=== PATIENT | male | born 1990 | race American Indian/Alaskan Native ===

== ENCOUNTER 2018-07-21 15:47 | Emergency (ER) | payer OTHER ==
--- NOTE | 2018-07-21 16:02 | Emergency Department Report ---
Blank Doc - Documentation Documentation: This is a 28-year-old male that presents with elevated platelet count. Patient was brought by nursing home for elevated platelet. Patient is asymptotic and denies any complaints. This initial assessment diagnostic orders/clinical plan/treatment(s) is/are subject to change based on patient's health status, clinical progression and re- assessment by fellow clinical providers in the ED. Further treatment and workup at subsequent clinical providers discretion. Patient/guardians urged not to elope from ED s their condition may be serious if not clinically assessed and managed. Initial orders include: 1-Patient sent to [facility] for further evaluation and treatment
[2018-07-21 16:45] LABS: Mean Corpuscular HGB Conc 30 % (32-34)
[2018-07-21 16:48] LABS: Hematocrit 33.8 % (35.5-45.6); Hemoglobin 10.1 gm/dl (11.8-15.2); Mean Corpuscular Volume 59 fl (84-94); Red Cell Distribution Width 38.8 % (13.2-15.2)
[2018-07-21 16:52] LABS: Alanine Aminotransferase 24 units/L (7-56); Albumin 3.6 g/dL (3.9-5); BUN/Creatinine Ratio 13; Blood Urea Nitrogen 12 mg/dL (9-20); Calcium 8.4 mg/dL (8.4-10.2); Hemolysis Index 8
[2018-07-21 17:58] LABS: Anisocytosis 1+; Band Neutrophils # (Manual) 0.1 K/mm3; Total Cells Counted 100
[2018-07-21 17:59] LABS: Hypochromasia 1+; Platelet Estimate Consistent w Auto; Tear Drop Cells Few
[2018-07-21 18:00] LABS: Platelet Count 349 K/mm3 (140-440)
[2018-07-21 18:11] VITALS: BP 117/61
--- NOTE | 2018-07-21 18:47 | Emergency Department Report ---
ED General Adult HPI - General Chief complaint: Recheck/Abnormal Lab/Rx Stated complaint: DIABETES Time Seen by Provider: 07/21/18 15:58 Source: patient Mode of arrival: Ambulatory Limitations: No Limitations - History of Present Illness Initial comments: 28-year-old male with a history of diabetes is brought in from senior living after having an elevated platelet count. Patient denies any chest pain or shortness of breath. Patient denies abdominal pain or vomiting. Patient denies any bleeding in the mouth region or hematemesis. Patient states he has no prior history of a abnormal platelet count. Patient does acknowledge history of anemia. Severity scale (0 -10): 0 - Related Data Allergies Allergy/AdvReac Type Severity Reaction Status Date / Time No Known Allergies Allergy Unverified 07/21/18 16:01 ED Review of Systems ROS: Stated complaint: DIABETES Other details as noted in HPI Constitutional: denies: chills, fever Eyes: denies: eye pain, eye discharge, vision change ENT: denies: ear pain, throat pain Respiratory: denies: cough, shortness of breath, wheezing Cardiovascular: denies: chest pain, palpitations Endocrine: no symptoms reported Gastrointestinal: denies: abdominal pain, nausea, diarrhea Genitourinary: denies: urgency, dysuria Musculoskeletal: denies: back pain, joint swelling, arthralgia Skin: denies: rash, lesions Neurological: denies: headache, weakness, paresthesias Psychiatric: denies: anxiety, depression Hematological/Lymphatic: denies: easy bleeding, easy bruising ED Past Medical Hx - Past Medical History Previous Medical History?: Yes Hx Diabetes: Yes - Surgical History Past Surgical History?: No - Social History Smoking Status: Former Smoker Substance Use Type: None ED Physical Exam - General Limitations: No Limitations General appearance: alert, in no apparent distress - Head Head exam: Present: atraumatic, normocephalic - Eye Eye exam: Present: normal appearance - ENT ENT exam: Present: mucous membranes dry - Neck Neck exam: Present: normal inspection - Respiratory Respiratory exam: Present: normal lung sounds bilaterally. Absent: respiratory distress - Cardiovascular Cardiovascular Exam: Present: regular rate, normal rhythm. Absent: systolic murmur, diastolic murmur, rubs, gallop - GI/Abdominal GI/Abdominal exam: Present: soft, normal bowel sounds - Rectal Rectal exam: Present: deferred - Extremities Exam Extremities exam: Present: normal inspection - Back Exam Back exam: Present: normal inspection - Neurological Exam Neurological exam: Present: alert, oriented X3 - Psychiatric Psychiatric exam: Present: normal affect, normal mood - Skin Skin exam: Present: warm, dry, intact, normal color. Absent: rash ED Course Vital Signs 07/21/18 07/21/18 07/21/18 15:53 16:00 17:53 Temperature 97.8 F 97.8 F 99.3 F Pulse Rate 69 72 Respiratory 18 18 Rate Blood Pressure 118/67 117/61 [Left] O2 Sat by Pulse 99 100 Oximetry ED Medical Decision Making - Lab Data Result diagrams: 07/21/18 16:08 07/21/18 16:08 - Medical Decision Making Patient is asymptomatic and is laying comfortably in the bed. Patient has a normal platelet count and blood glucose is 110. Patient be discharged to return to senior living. - Differential Diagnosis electrode abnormality; anemia; thrombocytosis; Critical care attestation.: If time is entered above; I have spent that time in minutes in the direct care of this critically ill patient, excluding procedure time. ED Disposition Clinical Impression: Diabetes mellitus Disposition: DC-01 TO HOME OR SELFCARE Is pt being admited?: No Condition: Stable Instructions: Diabetes Mellitus Type 2 in Adults (ED) Referrals: VIRGILIO ESQUIVEL MD [Staff Physician] - 3-5 Days Time of Disposition: 18:51 Print Language: AZERI
== END 2018-07-21 19:20 | disposition home or self-care (01) ==
LOC: ED 15:47
DX: R79.9 Abnormal finding of blood chemistry, unspecified (principal); E11.9 Type 2 diabetes mellitus without complications
CPT/HCPCS: 36415; 80053; 85007; 85025

== ENCOUNTER 2018-12-24 08:50 | Outpatient (CLI) | payer OTHER ==
--- NOTE | 2018-12-24 12:11 | Ultrasound Report ---
BILATERAL DIGITAL DIAGNOSTIC MAMMOGRAM WITH CAD -- 12/24/2018 BILATERAL COMPLETE BREAST ULTRASOUND INDICATION: Left palpable abnormality for many years, long history of bilateral nipple discharge sinc e childhood TECHNIQUE: Digital bilateral mammographic imaging was performed. Spot compression views were obtaine d. Complete ultrasound of all four (4) quadrants was performed. This examination was interpreted with the benefit of Computer-Aided Detection (CAD) analysis. COMPARISON: None FINDINGS: Density: The breasts are almost entirely fatty. There is no evidence of dominant mass, suspicious calcifications or architectural distortion in eithe r breast. Slight right and mild left gynecomastia are seen. Ultrasound Findings: Complete sonographic evlauation of all 4 quadrants and retroareolar region was p erformed. No abnormalities are seen in the right breast. In the left breast only mild gynecomastia is noted without discrete mass. IMPRESSION: Mild left gynecomastia is seen with slight right gynecomastia. No suspicious lesions are noted. Clini miles correlation is suggested to patient complaint. BI-RADS Category 2: Benign. A "normal" or negative report should not discourage follow up or biopsy of a clinically significant f inding. A written summary of these findings will be mailed to the patient. The patient will be entered into a mammography reporting system which will generate a reminder letter for the patient's next appointmen t at the appropriate interval. According to the [employer], yearly mammograms are recommended starting at age 40 and continuing as long as a woman is in good health. Breast MRI is recommended for women with an jocy roximately 20-25% or greater lifetime risk of breast cancer, including women with a strong family his tory of breast or ovarian cancer and women who have been treated for Hodgkin's disease. Signer Name: Patel Montgomery MD Signed: 12/24/2018 12:07 PM Workstation Name: [id number]
== END 2018-12-24 08:51 | disposition home or self-care (01) ==
LOC: EEVIPCON 08:50 → US 08:50
PROVIDERS: ATTEND Specialist
DX: N62 Hypertrophy of breast (principal); E11.9 Type 2 diabetes mellitus without complications
CPT/HCPCS: 77066